=== PATIENT | male | born 1945 | race Caucasian/White ===

== ENCOUNTER 2021-01-03 08:05 | Emergency (ER) | payer MEDICARE ==
[~2021-01-03] VITALS: Ht 165.1 cm; Wt 68.0 kg
[2021-01-03 09:13] LABS: MAGNESIUM 2.5 mg/dL (1.80-2.40); THYROID STIMULATING HORMONE 3.05 uIU/mL (0.36-3.74)
[2021-01-03] MEDS ORDERED: ATROPINE 1MG SYG IVP ONE (09:33)
[2021-01-03] MEDS ORDERED: PROPOFOL 10 MG/ML 20ML VIAL IV ONE ×2 (09:34→10:02)
[2021-01-03] MEDS ORDERED: 0.9%NACL 1000ML 1,000 ML IV ONE (09:35)
[2021-01-03 11:00] VITALS: BP 95/62
== END 2021-01-03 11:56 | disposition home or self-care (01) ==
LOC: EDH 08:05
DX: I48.91 Unspecified atrial fibrillation (principal); R19.7 Diarrhea, unspecified; E03.9 Hypothyroidism, unspecified; I10 Essential (primary) hypertension
CPT/HCPCS: 36415; 83735; 84443; 92960; 93005 ×2; 96360; 99285; J2704; J7030; J0461

== ENCOUNTER 2023-01-04 09:56 | Emergency (ER) | payer MEDICARE ==
[~2023-01-04] VITALS: Ht 165.1 cm; Wt 69.9 kg
[2023-01-04 10:20] LABS: HEMATOCRIT 43.7 % (42-54); MEAN CORPUSCULAR HEMOGLOBIN 30.4 pg (27.0-33.0); MEAN CORPUSCULAR HGB CONC 33.9 g/dL (32.0-36.0); MEAN CORPUSCULAR VOLUME 89.7 fL (79-99); RED BLOOD CELL COUNT(AUTO) 4.87 MIL/uL (4.50-6.20); RED CELL DISTRIBUTION WIDTH 12.6 % (11.0-15.5); WHITE BLOOD COUNT (AUTO) 5.4 K/uL (4.8-10.8)
[2023-01-04 10:31] LABS: CREATININE 0.9 mg/dL (0.5-1.5); POTASSIUM 4.2 mmol/L (3.5-5.1)
[2023-01-04] MEDS ORDERED: PROPOFOL 10 MG/ML 20ML VIAL IV ONE (10:42)
[2023-01-04 10:44] LABS: MAGNESIUM 2.3 mg/dL (1.80-2.40); THYROID STIMULATING HORMONE 0.09 uIU/mL (0.36-3.74)
[2023-01-04 11:47] VITALS: BP 126/74; PULSE 58; RESP 16; O2SAT 99
== END 2023-01-04 13:25 | disposition home or self-care (01) ==
LOC: EDH 09:56
DX: I48.92 Unspecified atrial flutter (principal); E05.90 Thyrotoxicosis, unspecified without thyrotoxic crisis or storm; I10 Essential (primary) hypertension; I48.91 Unspecified atrial fibrillation; Z98.890 Other specified postprocedural states; Z94.81 Bone marrow transplant status; Z88.8 Allergy status to other drugs, medicaments and biological substances
CPT/HCPCS: 99285; 71045; 84443; 83735; 84484; 80048; 83880; 85027; 36415; 93005 ×3; J2704; J3490

== ENCOUNTER 2023-06-17 11:06 | Emergency (ER) | payer MEDICARE ==
[~2023-06-17] VITALS: Ht 165.1 cm; Wt 71.7 kg
[2023-06-17 11:40] LABS: HEMATOCRIT 41.7 % (42-54); MEAN CORPUSCULAR HEMOGLOBIN 30.7 pg (27.0-33.0); MEAN CORPUSCULAR HGB CONC 34.1 g/dL (32.0-36.0); MEAN CORPUSCULAR VOLUME 90.3 fL (79-99); RED BLOOD CELL COUNT(AUTO) 4.62 MIL/uL (4.50-6.20)
[2023-06-17 11:47] LABS: CREATININE 1.2 mg/dL (0.5-1.3); POTASSIUM 4.1 mmol/L (3.5-5.1)
[2023-06-17] MEDS ORDERED: PROPOFOL 10 MG/ML 20ML VIAL IV ONE (14:04)
[2023-06-17 14:38] VITALS: BP 108/54; PULSE 59; RESP 17; O2SAT 98
== END 2023-06-17 15:07 | disposition home or self-care (01) ==
LOC: EDH 11:06
DX: R00.2 Palpitations (principal); I10 Essential (primary) hypertension; E03.9 Hypothyroidism, unspecified; M19.90 Unspecified osteoarthritis, unspecified site; Z98.890 Other specified postprocedural states; Z88.8 Allergy status to other drugs, medicaments and biological substances
CPT/HCPCS: 36415; 71045; 80048; 84443; 84484; 85027; 93005; J2704; J3490